=== PATIENT | male | born 1960 | race Caucasian/White ===

== ENCOUNTER 2022-09-28 15:06 | Emergency (ER) | payer BC ==
[2022-09-28] MEDS ORDERED: Sodium Chloride 0.9% 10 ML Syringe FLUSH PRN (15:16)
[2022-09-28] MEDS ORDERED: HYDROmorphone 1 MG/ML Syringe IVPUSH ONE (15:16)
[2022-09-28] MEDS ORDERED: HYDROmorphone 0.5 MG/0.5 ML Syringe IVPUSH ONE (16:16)
== END 2022-09-28 17:18 | disposition home or self-care (01) ==
LOC: JD.ED 15:06
DX: S42.392A Other fracture of shaft of left humerus, initial encounter for closed fracture (principal); W11.XXXA Fall on and from ladder, initial encounter
CPT/HCPCS: 29105; 73060; 96374; 96375; 96376; 99283; J1170; J3360; J3490; 29125; 99284